=== PATIENT | female | born 1950 | race Caucasian/White ===

== ENCOUNTER 2017-08-29 06:23 | Day surgery (SDC) | payer OTHER ==
[~2017-08-29] VITALS: Ht 170.2 cm; Wt 122.6 kg
[~2017-08-29 06:23] MED LIST: AEC81 PO; FENO135C4 PO; GLIM4TAB3 PO; HYDR12.530 PO; METO-409 PO; ROSU10TA35 PO; SITA1TAB6 PO; VALS160T28 PO; VENL150C2 PO
[2017-08-29] MEDS ORDERED: SODIUM CHLORIDE 0.9% 1000ML 1,000 ML IV ONE (06:53)
[2017-08-29 06:54] VITALS: BP 173/65
[2017-08-29] MEDS ORDERED: PROPOFOL 10 MG/ML 20ML VIAL IV ONE ×3 (07:30→07:53)
[2017-08-29] MEDS ORDERED: LIDOCAINE HCL 2% 20ML ONE (07:30)
[2017-08-29] MEDS ORDERED: GLYCOPYRROLATE 0.2 MG/ML 5 ML VIAL ONE (07:30)
[2017-08-29] MEDS ORDERED: FENTANYL CITRATE PF 50 MCG/1 ML 2ML VIAL ONE (07:30)
[2017-08-29 08:02] VITALS: BP 138/66
== END 2017-08-29 08:30 | disposition home or self-care (01) ==
LOC: DAH 06:23 → ENDO 06:23
PROVIDERS: ATTEND Internal Medicine Gastroenterology
DX: Z12.11 Encounter for screening for malignant neoplasm of colon (principal); K57.30 Diverticulosis of large intestine without perforation or abscess without bleeding; D25.0 Submucous leiomyoma of uterus; K21.9 Gastro-esophageal reflux disease without esophagitis; I10 Essential (primary) hypertension; E78.5 Hyperlipidemia, unspecified; G47.33 Obstructive sleep apnea (adult) (pediatric); E11.9 Type 2 diabetes mellitus without complications; F32.9 Major depressive disorder, single episode, unspecified; Z90.710 Acquired absence of both cervix and uterus; Z90.49 Acquired absence of other specified parts of digestive tract; Z98.890 Other specified postprocedural states; Z86.010 Personal history of colon polyps; Z80.0 Family history of malignant neoplasm of digestive organs; Z88.2 Allergy status to sulfonamides; Z79.82 Long term (current) use of aspirin; Z79.84 Long term (current) use of oral hypoglycemic drugs
CPT/HCPCS: 45385; 82948 ×2; 88305; 93005; A4606; J2704 ×3; J3010; J3490 ×2; J7030